=== PATIENT | female | born 1985 | race Caucasian/White ===

== ENCOUNTER 2017-06-12 13:57 | Emergency (ER) | payer SELFPAY ==
[2017-06-12 14:12] VITALS: BP 128/91; PULSE 97; TEMP 98.5; BMI 30.9
--- NOTE | 2017-06-12 14:21 | PDOC ---
History of Present Illness - General History Source: Patient Exam Limitations: No Limitations - History of Present Illness Initial Comments: 06/12/17 14:48 The patient is a 31 year old female, with no significant past medical history of , who presents to the emergency department with, 2 weeks of a cough and sore throat beginning last night. She reports the ear pain to feel as a painful pressure. She reports having ear infections occasionally growing up. She reports sick contact. She reports to have had strep throat in the past. She reports a nonproductive cough, stuffy, and runny nose. She reports taking NyQuil and Advil PM for her symptoms, without relief. She is not up to date with her flu shot. She reports her menses to be regular and to not be . She denies to have ever been diagnosed with pneumonia. She denies recent fevers , chills, headache or dizziness. She denies recent nausea, vomit, diarrhea or constipation. She denies recent dysuria, frequency, urgency or hematuria. She denies recent chest pain or shortness of breath. Allergies: NKA Past surgical history: None reported. Social history: Smoker ( pack a day). <Mukesh Seay - Last Filed: 06/12/17 14:48> <Peter Guy - Last Filed: 06/12/17 15:11> - General Chief Complaint: Sore Throat Stated Complaint: EAR INFECTION SORE THROAT Time Seen by Provider: 06/12/17 14:18 Past History <Mukesh Seay - Last Filed: 06/12/17 14:48> - Past Medical History COPD: No Other medical history: DENIES - Immunization History Immunization Up to Date: Yes - Suicide/Smoking/Psychosocial Hx Smoking Status: Yes Smoking History: Current every day smoker Have you smoked in the past 12 months: Yes Number of Cigarettes Smoked Daily: 10 Cigars Per Day: 0 Information on smoking cessation initiated: Yes 'Breaking Loose' booklet given: 06/12/17 Hx Alcohol Use: Yes (SOCIAL) Drug/Substance Use Hx: No Substance Use Type: Alcohol <Peter Guy - Last Filed: 06/12/17 15:11> - Past Medical History Allergies/Adverse Reactions: Allergies Allergy/AdvReac Type Severity Reaction Status Date / Time No Known Allergies Allergy Verified 06/12/17 13:59 Home Medications: Ambulatory Orders Ibuprofen 800 mg PO TID #20 tablet 06/12/17 Promethazine/Phenyleph/Codeine [Phenergan VC+Codeine Syrup] 5 - 10 ml PO HS PRN #90 ml MDD 2 06/12/17 Review of Systems - Review of Systems Able to Perform ROS?: Yes Comments:: 06/12/17 14:50 CONSTITUTIONAL: Absent: fever, no chills, no fatigue EYES: Absent: visual changes ENT:+ Ear Pain. +Sore throat. +Stuffy nose. +Runny nose. CARDIOVASCULAR: Absent: chest pain, no palpitations RESPIRATORY:+Cough (Nonproductive) Absent: no SOB GI: Absent: abdominal pain, no nausea, no vomiting, no constipation, no diarrhea GENITOURINARY: Absent: dysuria, no frequency, no hematuria MUSKULOSKELETAL: Absent: back pain, no arthralgia, no myalgia SKIN: Absent: rash NEURO: Absent: headache All Other Systems: Reviewed and Negative <Mukesh Seay - Last Filed: 06/12/17 14:48> *Physical Exam - Vital Signs Last Vital Signs Temp Pulse Resp BP Pulse Ox 98.5 F 97 H 20 128/91 100 06/12/17 13:58 06/12/17 13:58 06/12/17 13:58 06/12/17 13:58 06/12/17 13:58 - Physical Exam Comments: 06/12/17 14:50 GENERAL: Well developed, well nourished. Awake and alert. No acute distress. HEENT: +Left ear slightly erythematous. +Back of throat erythematous, diffusely edematous with no discharge or focal swelling. Normocephalic, atraumatic. PERRLA , EOMI. No conjunctival pallor. Sclera are non-icteric. Moist mucous membranes. NECK: +Submandibular lymphadenopathy. Supple. Full ROM. No JVD. Carotid pulses 2+ and symmetric, without bruits. No thyromegaly. CARDIOVASCULAR: Regular rate and rhythm. No murmurs, rubs, or gallops. Distal pulses are 2+ and symmetric. PULMONARY: No evidence of respiratory distress. Lungs clear to auscultation bilaterally. No wheezing, rales or rhonchi. ABDOMINAL: Soft. Non-tender. Non-distended. No rebound or guarding. No organomegaly. Normoactive bowel sounds. MUSCULOSKELETAL Normal range of motion at all joints. No bony deformities or tenderness. No CVA tenderness. EXTREMITIES: No cyanosis. No clubbing. No edema. No calf tenderness. SKIN: Warm and dry. Normal capillary refill. No rashes. No jaundice. NEUROLOGICAL: Alert, awake, appropriate. Cranial nerves 2-12 intact. No deficits to light touch and temperature in face, upper extremities and lower extremities. No motor deficits in the in face, upper extremities and lower extremities. Normoreflexic in the upper and lower extremities. Normal speech. Toes are down- going bilaterally. Gait is normal without ataxia. PSYCHIATRIC: Cooperative. Good eye contact. Appropriate mood and affect. <Mukesh Seay - Last Filed: 06/12/17 14:48> - Vital Signs Last Vital Signs Temp Pulse Resp BP Pulse Ox 98.5 F 97 H 20 128/91 100 06/12/17 13:58 06/12/17 13:58 06/12/17 13:58 06/12/17 13:58 06/12/17 13:58 <Peter Guy - Last Filed: 06/12/17 15:11> ED Treatment Course - Medications Given in the ED: ED Medications Discontinued Medications Generic Name Dose Route Start Last Admin Trade Name Freq PRN Reason Stop Dose Admin Guaifenesin/Codeine Phosphate 10 ml 06/12/17 14:24 06/12/17 14:29 Robitussin Ac - PO 06/12/17 14:25 10 ml ONCE ONE Administration Ibuprofen 800 mg 06/12/17 14:23 06/12/17 14:28 Motrin - PO 06/12/17 14:24 800 mg ONCE ONE Administration <Mukesh Seay - Last Filed: 06/12/17 14:48> Medical Decision Making - Medical Decision Making 06/12/17 15:10 Patient is afebrile and well-hydrated. There is no difficulty breathing, swallowing, or stridor. There is no sign of an abscess in the throat, but there is considerable erythema and edema. Rapid strep is positive Patient elects single injection of benzathine penicillin instead of oral medication. Instructions. Discharged fully ambulatory and in no significant pain or other distress with her mother to follow-up as recommended. <Peter Guy - Last Filed: 06/12/17 15:11> *DC/Admit/Observation/Transfer - Attestations Scribe Attestion: 06/12/17 14:51 Documentation prepared by Mukesh Seay, acting as medical office administrator for Peter Rushing MD. <Mukesh Seay - Last Filed: 06/12/17 14:48> - Discharge Dispostion Admit: No <Peter Guy - Last Filed: 06/12/17 15:11> Diagnosis at time of Disposition: Strep throat - Discharge Dispostion Disposition: HOME Condition at time of disposition: Improved - Prescriptions Prescriptions: Ibuprofen 800 mg PO TID #20 tablet Promethazine/Phenyleph/Codeine [Phenergan VC+Codeine Syrup] 5 - 10 ml PO HS PRN #90 ml MDD 2 PRN Reason: cough and or congestion - Patient Instructions Printed Discharge Instructions: DI for Strep Throat Additional Instructions: Return to ER if there is fever or difficulty breathing or swallowing. Otherwise see primary physician for follow-up 2-3 days - Post Discharge Activity Forms/Work/School Notes: Back to Work
[2017-06-12] MEDS ORDERED: IBUPROFEN 600 MG TABLET (FP) PO ONE (14:23)
[2017-06-12] MEDS ORDERED: guaiFENesin/CODEINE 10 ML UNIT-DOSE CUPS PO ONE (14:24)
[2017-06-12] MEDS ORDERED: IBUPROFEN 400 MG TABLET (FP) PO ONE (14:26)
[2017-06-12] MEDS ORDERED: guaiFENesin/CODEINE 10 ML UNIT-DOSE CUPS ONE (14:27)
[2017-06-12] MEDS ORDERED: PENICILLIN G BENZATHINE 1,200,000 UNIT/2 ML PFS IM ONE ×2 (15:07→15:16)
== END 2017-06-12 15:34 | disposition home or self-care (01) ==
LOC: FER 13:57
DX: J02.0 Streptococcal pharyngitis (principal)
CPT/HCPCS: 87070; 87077; 87430; 99282-25

== ENCOUNTER 2017-11-02 21:35 | Emergency (ER) | payer OTHER ==
--- NOTE | 2017-11-02 21:42 | PDOC ---
History of Present Illness - General Chief Complaint: Alcohol intoxication Stated Complaint: OPIOD ADDICTION Time Seen by Provider: 11/02/17 21:42 History Source: Patient Exam Limitations: No Limitations - History of Present Illness Initial Comments: Heart care transferred 11/02/17 22:06 This is a 32-year-old female brought in by her father for evaluation of opioid withdrawal. As per patient's father she needs opioid detox and treatment for withdrawal. Patient said the last time she used any opioids was 10 mg of Percocet at 5:00 in the morning. Patient said she uses Roxicodone for recreational use. Patient is also 14 weeks but says she wants to terminate the at some point. When asked patient if she wanted detox for opioids patient said, "whenever I just want to feel better" patient denies any vomiting or diarrhea. Patient denies any rhinorrhea. Patient is experiencing some anxiety and mild agitation here in the emergency room. Patient is also noted to have positive alcohol on her breath and said she did drink 4 glasses of wine earlier in the day. He is a PAST MEDICAL HISTORY: no significant history PAST SURGICAL HISTORY: no significant history FAMILY HISTORY: no pertinant history SOCIAL HISTORY: Pt lives with family and is employed. MEDICATIONS: reviewed ALLERGIES: As per nursing notes Review of Systems General: No fevers or chills, no weakness, no weight loss HEENT: No change in vision. No sore throat,. No ear pain CardioVascular: No chest pain or shortness of breath Respiratory:No cough, or wheezing. Gastrointestinal: no nausea, vomitting, diarrhea or constipation, No rectal bleeding Genitourinary: No dysuria, hematuria, or frequency Musculoskeletal: No joint or muscle pain or swelling Neurologic: No headache, vertigo, dizziness or loss of consciousness Psychiatric: nor depression Skin: No rashes or easy bruising Endocrine: no increased thirst or abnormal weight change Allergic: no skin or latex allergy All other systems reviewed and normal Exam: General: Well-nourished well-developed individual, in mild distress intermittently tearful and anxious HEENT: patient is not noted to be yawning frequently. Neck: Supple, no meningeal signs, no lymphadenopathy Eyes::Pupils equal reactive and round, extraocular motion intact, there is no dilation of the pupils, there is no increase lacrimation or tearing Chest: Nontender to palpation Cardiac: S1-S2 normal, regular rate and rhythm, no murmurs rubs or gallops Respiratory: Lungs clear to auscultation bilateral Abdomen: Soft, nondistended, normal bowel sounds, nontender to palpation diffusely, bowel sounds are normal there is no increase in bowel sounds Extremities: Warm, dry, no cyanosis, clubbing, or edema Skin: No rashes Neuro: Alert and oriented x3, CN II - XII intact, nonfocal exam with normal strength, normal sensation, normal reflexes, normal gait, Psych: Anxious and somewhat agitated. Assessment and plan: This is a 32-year-old female who is brought in by her father requesting detox from opioids and concerned patient may be in withdrawal. Here in the emergency room patient's vitals were blood pressure 107 systolic and a heart rate of 97. Patient was somewhat anxious and mildly agitated otherwise there is no evidence of acute opioid withdrawal at this time. Patient had no vomiting, diarrhea, rhinorrhea, increased lacrimation, increased bowel sounds, abdominal cramping or pain, palpitations, frequent yawning or muscle aches. Patient did state she had some sweating earlier but was noted to have dry skin here in the emergency room. Patient does not require acute opioid withdrawal medication at this time however I did recommend that she seek treatment at an opioid detox center. [facility] was contacted we talked to the plastic sheets supervisor who said they do not do detox on a patient. However they didn't give us the phone number of the counselor Demar who will be in in the morning. That phone number was given to the father and we told me should call the counselor at [facility] who will be able to help them find a opioid detox center that well be able to treat her addiction and also address the issues. Patient was discharged home with her father who will be with her tonight. Past History - Past Medical History Allergies/Adverse Reactions: Allergies Allergy/AdvReac Type Severity Reaction Status Date / Time No Known Allergies Allergy Verified 06/12/17 13:59 Home Medications: Ambulatory Orders Oxycodone HCl [Roxicodone] 30 mg PO PRN 11/02/17 COPD: No - Immunization History Immunization Up to Date: Yes - Suicide/Smoking/Psychosocial Hx Smoking Status: Yes Smoking History: Current every day smoker Have you smoked in the past 12 months: Yes Number of Cigarettes Smoked Daily: 10 Cigars Per Day: 0 'Breaking Loose' booklet given: 06/12/17 Hx Alcohol Use: Yes (SOCIAL) Drug/Substance Use Hx: No Substance Use Type: Alcohol *DC/Admit/Observation/Transfer Diagnosis at time of Disposition: Opioid abuse - Discharge Dispostion Disposition: HOME Condition at time of disposition: Stable Admit: No - Referrals - Patient Instructions Additional Instructions: Call the numbers that you were given in the morning to speak with a counselor and try to get a program for her that we'll both detox her and address the issues. If tonight she experiences the symptoms of withdrawal that we discussed you may need to give her a Percocet to get her through the night until you can get her into a program. Return to the emergency department immediately with ANY new, persistent or worsening symptoms. Continue any medications as previously prescribed by your physician. You should follow up with your primary doctor as soon as possible regarding today's emergency department visit. . Please make sure your doctor reviews the results of your emergency evaluation. Thank you for coming to the Emergency Department today for your care. It was a pleasure to see you today. Please note that your evaluation is INCOMPLETE until you follow-up with your doctor. - Post Discharge Activity
[2017-11-02 22:00] VITALS: BP 107/70; PULSE 97; TEMP 98.2
== END 2017-11-02 22:26 | disposition home or self-care (01) ==
LOC: FER 21:35
DX: O99.322 Drug use complicating pregnancy, second trimester (principal); F11.10 Opioid abuse, uncomplicated; Z3A.14 14 weeks gestation of pregnancy; F17.210 Nicotine dependence, cigarettes, uncomplicated
CPT/HCPCS: 99282-25

== ENCOUNTER 2017-11-11 22:41 | Emergency (ER) | payer OTHER ==
[2017-11-11 22:45] VITALS: BP 129/77; PULSE 110; TEMP 98.2
[2017-11-11 23:22] LABS: URINE APPEARANCE SLCLOUDY; URINE BILIRUBIN NEGATIVE (<2.0 mg/dL); URINE COLOR DKYELLOW; URINE GLUCOSE (UA) NEGATIVE (NEGATIVE); URINE KETONE TRACE (NEGATIVE); URINE LEUK ESTERASE NEGATIVE (NEGATIVE); URINE NITRITE NEGATIVE (NEGATIVE); URINE PROTEIN NEGATIVE (NEGATIVE)
--- NOTE | 2017-11-11 23:44 | PDOC ---
History of Present Illness <AlfonzoJoya Nicole - Last Filed: 11/12/17 01:15> - General History Source: Patient Exam Limitations: No Limitations - History of Present Illness Initial Comments: 11/12/17 01:19 The patient is a 32 year old female, A2 with no significant past medical history Presents to the emergency department with abd pain. The patient reports lower abd cramps. Denies any vaginal bleeding. Denies vomiting, nausea, fever, chills or cough. Denies dysuria, hematuria or frequency or urgency to urinate. The patient reports her LMP was mid July. Allergies: NKDA Surgical history: None reported <Ara Wong - Last Filed: 11/12/17 01:23> - General Chief Complaint: Pain Stated Complaint: PAIN (14 WKS ) Time Seen by Provider: 11/11/17 23:03 Past History - Past Medical History CVA: No COPD: No Psychiatric Problems: Yes - Reproductive History Is Patient Now?: Yes - Immunization History Immunization Up to Date: Yes - Suicide/Smoking/Psychosocial Hx Smoking Status: Yes Smoking History: Current some day smoker Have you smoked in the past 12 months: Yes Number of Cigarettes Smoked Daily: 7 Cigars Per Day: 0 Information on smoking cessation initiated: No 'Breaking Loose' booklet given: 06/12/17 Hx Alcohol Use: No Drug/Substance Use Hx: No (opiates) Substance Use Type: Alcohol, Opiates <Nestor Mejíamargarito Ganh - Last Filed: 11/12/17 01:15> <Ara Wong - Last Filed: 11/12/17 01:23> - Past Medical History Allergies/Adverse Reactions: Allergies Allergy/AdvReac Type Severity Reaction Status Date / Time No Known Allergies Allergy Verified 11/11/17 22:43 Home Medications: Ambulatory Orders 105/Iron/Folic AC/Dha [Prena1 True Combo Pack] 1 each PO DAILY Review of Systems - Review of Systems Able to Perform ROS?: Yes Comments:: 11/12/17 01:21 CONSTITUTIONAL: Absent: fever, no chills, no fatigue EYES: Absent: visual changes ENT: Absent: ear pain, no sore throat CARDIOVASCULAR: Absent: chest pain, no palpitations RESPIRATORY: Absent: cough, no SOB GI: mild abd pain. Absent: no nausea, no vomiting, no constipation, no diarrhea GENITOURINARY: no vaginal bleeding. Absent: dysuria, no frequency, no hematuria MUSKULOSKELETAL: Absent: back pain, no arthralgia, no myalgia SKIN: Absent: rash NEURO: Absent: headache <MarvinAra - Last Filed: 11/12/17 01:23> *Physical Exam - Vital Signs Last Vital Signs Temp Pulse Resp BP Pulse Ox 98.2 F 110 H 20 129/77 100 11/11/17 22:43 11/11/17 22:43 11/11/17 22:43 11/11/17 22:43 11/11/17 22:43 <Joya Mejía - Last Filed: 11/12/17 01:15> - Vital Signs Last Vital Signs Temp Pulse Resp BP Pulse Ox 98.2 F 110 H 20 129/77 100 11/11/17 22:43 11/11/17 22:43 11/11/17 22:43 11/11/17 22:43 11/11/17 22:43 - Physical Exam Comments: 11/12/17 01:17 GENERAL: 32 year old female, in no acute distress. Well-appearing, well-nourished. No apparent distress. HEENT: Normocephalic, atraumatic. PERRL, EOM intact. CARDIOVASCULAR: Normal S1, S2. Regular rate and rhythm. PULMONARY: Clear to auscultation bilaterally. ABDOMEN: (+) protuberant belly and lower abd cramp. Soft, non-distended, non-tender. EXTREMITIES: Stranner pitting edema. Normal ROM in all four extremities. No gross deformities. SKIN: Warm, dry. No rash NEUROLOGICAL: No focal neurological deficits. <Ara Wong - Last Filed: 11/12/17 01:23> ED Treatment Course - ADDITIONAL ORDERS Additional order review: Laboratory Results 11/11/17 23:00 Urine Color Dkyellow Urine Appearance Slcloudy Urine pH 5.0 Ur Specific [place] 1.031 Urine Protein Negative Urine Glucose (UA) Negative Urine Ketones Trace H Urine Blood Negative Urine Nitrite Negative Urine Bilirubin Negative Urine Urobilinogen 2.0 H Ur Leukocyte Esterase Negative - RADIOLOGY Radiology Studies Ordered: Category Date Time Status LIMITED US [US] Stat Ultrasound 11/11/17 23:41 Ordered TRANSVAGINAL US PREG [US] Stat Ultrasound 11/11/17 23:33 Ordered <Joya Mejía - Last Filed: 11/12/17 01:15> - ADDITIONAL ORDERS Additional order review: Laboratory Results 11/11/17 23:00 Urine Color Dkyellow Urine Appearance Slcloudy Urine pH 5.0 Ur Specific [place] 1.031 Urine Protein Negative Urine Glucose (UA) Negative Urine Ketones Trace H Urine Blood Negative Urine Nitrite Negative Urine Bilirubin Negative Urine Urobilinogen 2.0 H Ur Leukocyte Esterase Negative <Ara Wong - Last Filed: 11/12/17 01:23> Medical Decision Making - Medical Decision Making 11/12/17 01:07 Finding: Ultrasound : uterus is anteverted and measures 12.8 cm in length. There is a single live IUP with estimated gestational age of 11 weeks and 5 days. There is a normal heart rate of 150 BPM. There is no subchorionic bleed. The right ovary measure 4.3 cm in length and appears normal. The left ovary measure 2.8 cm in length and appears normal. There is no significant free fluid. Pelvic duplex: there is normal arterial and venous flow in both ovaries. impression: Live IUP with estimated ago of 11 weeks and 5 days without definite abnormalities. The ultrasound was documented and signed by Ashutosh Alvarado MD at 11/12/2017 00:59 EST. <Ara Wong - Last Filed: 11/12/17 01:23> *DC/Admit/Observation/Transfer <Joya Mejía - Last Filed: 11/12/17 01:15> - Attestations Scribe Attestion: 11/12/17 01:23 Documentation prepared by Ara Wong, acting as electromedical service engineer for Joya Mejía MD. <Ara Wong - Last Filed: 11/12/17 01:23> Diagnosis at time of Disposition: - Referrals Referrals: Tino Ojeda MD [Primary Care Provider] - - Patient Instructions Printed Discharge Instructions: DI for -- Discomforts and Remedies Additional Instructions: please followup with supply tech - Post Discharge Activity
== END 2017-11-12 01:20 | disposition home or self-care (01) ==
LOC: JER 22:41
DX: O26.891 Other specified pregnancy related conditions, first trimester (principal); R10.30 Lower abdominal pain, unspecified; Z3A.11 11 weeks gestation of pregnancy
CPT/HCPCS: 76801-TC; 81003; 99281-25

== ENCOUNTER 2018-05-28 08:00 | Inpatient (IN) | payer OTHER ==
[2018-05-28 08:58] VITALS: BMI 35.0
[2018-05-28] MEDS ORDERED: BUTORPHANOL TARTRATE 1 MG/ML VIAL ONE ×2 (09:11)
[2018-05-28] MEDS ORDERED: PROMETHAZINE HCL 25 MG/1 ML VIAL ONE (09:11)
[2018-05-28] MEDS ORDERED: PROMETHAZINE HCL 25 MG/1 ML VIAL IVPUSH ONE (09:36)
[2018-05-28] MEDS ORDERED: BUTORPHANOL TARTRATE 1 MG/ML VIAL IVPB ONE (09:36)
--- NOTE | 2018-05-28 09:42 | HP ---
Past Medical History - Admission Chief Complaint: Pain in labor History of Present Illness: 32 yo @ 39 weeks gestation presents to L&D c/o labor pain. Few minutes later jess was ruptured. She was then admitted. Upon admission she was 2 cm dilated History Source: Patient Limitations to Obtaining History: No Limitations - Past Medical History ...: 4 ...Para: 1 ...Term: 1 ...: 0 ...Spon : 0 ...Induced : 2 ...Multiple Gestation: 0 ...EDC by Son[facility]: 05/29/18 - Past Surgical History Past Surgical History: Yes: None Hx Myomectomy: No Hx Transabdominal Cerclage: No - Smoking History Smoking history: Current every day smoker Have you smoked in the past 12 months: Yes Aproximately how many cigarettes per day: 7 - Alcohol/Substance Use Hx Alcohol Use: No Home Medications - Allergies Allergies/Adverse Reactions: Allergies Allergy/AdvReac Type Severity Reaction Status Date / Time No Known Allergies Allergy Verified 05/28/18 08:44 - Home Medications Home Medications: Ambulatory Orders 105/Iron/Folic AC/Dha [Prena1 True Combo Pack] 1 each PO DAILY Family Disease History - Family Disease History Family History: Unremarkable Review of Systems - Review of Systems Constitutional: reports: No Symptoms Eyes: reports: No Symptoms HENT: reports: No Symptoms Neck: reports: No Symptoms Cardiovascular: reports: No Symptoms Respiratory: reports: No Symptoms Gastrointestinal: reports: No Symptoms Genitourinary: reports: Pain Breasts: reports: No Symptoms Reported Musculoskeletal: reports: No Symptoms Integumentary: reports: No Symptoms Neurological: reports: No Symptoms Psychiatric: reports: No Symptoms Pain Intensity: 8 Physical Exam - Maternity Vital Signs: Vital Signs Temperature 97.7 F 05/28/18 08:15 Pulse Rate 93 H 05/28/18 09:00 Respiratory Rate 20 05/28/18 09:00 Blood Pressure 130/77 05/28/18 09:00 O2 Sat by Pulse Oximetry (%) Constitutional: Yes: Well Nourished Eyes: Yes: Conjunctiva Clear HENT: Yes: Atraumatic Neck: Yes: Supple Cardiovascular: Yes: Regular Rate and Rhythm Lungs: Clear to auscultation - Abdominal Exam/OB Number of Fetuses: Single Presentation: Vertex Contractions: Yes Regularity: Regular Intensity: Mod/Strong - Vaginal Exam/OB Dilatation (cm): 2 - Physical Exam ...Motor Strength: WNL Psychiatric: Yes: Alert, Oriented Problem List - Problems (1) Pain during labor Code(s): O99.89 - OTH DISEASES AND CONDITIONS COMPL PREG/CHLDBRTH; R52 - PAIN, UNSPECIFIED (2) 39 weeks gestation of Code(s): Z3A.39 - 39 WEEKS GESTATION OF Assessment/Plan Labor pain Admit to L&D Analgesia as needed Anticipate
[2018-05-28] MEDS ORDERED: DEXTROSE 5%-LACTATED RINGERS 1,000 ML IV SCH (09:45)
[2018-05-28 09:50] LABS: BASO % 0.2 % (0-2.0); EOS % 0.4 % (0-4.5); HEMATOCRIT 36.4 % (32.4-45.2); LYMPH % 17.3 % (8-40); MCH 32.1 pg (25.7-33.7); MCHC 32.9 g/dl (32.0-36.0); MEAN CELL VOLUME 97.7 fl (80-96); MEAN PLT VOLUME 7.1 fl (7.5-11.1); MONO % 5.9 % (3.8-10.2); NEUT % 76.2 % (42.8-82.8); PLATELET COUNT 421 K/MM3 (134-434); RBC 3.73 M/mm3 (3.60-5.2); RDW 13.4 % (11.6-15.6); WHITE BLOOD COUNT 13.8 K/mm3 (4.0-10.0)
[2018-05-28] MEDS ORDERED: FENTANYL/BUPIVACAINE/NS/PF - PCEA - 50 ML DISP.SYRIN EP ONE ×3 (10:01→17:56)
[2018-05-28] MEDS ORDERED: NALOXONE HCL 0.4 MG/ML VIAL IVPUSH PRN (10:02)
[2018-05-28] MEDS: ELECTROLYTE-148 SOLN 1,000 ML IV SCH ×2 (10:05→14:37)
[2018-05-28] MEDS ORDERED: FENTANYL/BUPIVACAINE/NS/PF - PCEA - 50 ML DISP.SYRIN EP SCH (10:15)
[2018-05-28] MEDS ORDERED: LIDO 2%/EPI 1:200000 PRESRVFRE (20 ML SDVIAL) ONE (10:16)
[2018-05-28 10:29] LABS: INR 0.92 (0.83-1.09); PROTHROMBIN TIME (PATIENT) 10.8 SEC (9.7-13.0)
[2018-05-28 10:32] LABS: ACTIVATED PTT 25.2 SECONDS (25.2-36.5)
[2018-05-28 10:41] LABS: ANION GAP 13 MMOL/L (8-16); BLOOD UREA NITROGEN 15 mg/dL (7-18); CALCIUM 8.7 mg/dL (8.5-10.1); CHLORIDE 102 mmol/L (98-107); CO2 19 mmol/L (21-32); CREATININE 0.5 mg/dL (0.55-1.3); GLUCOSE,RANDOM 117 mg/dL (74-106); SODIUM 134 mmol/L (136-145)
[2018-05-28] MEDS ORDERED: BUPIVACAINE HCL/PF 0.25% (2.5MG/ML) 10 ML VIAL ONE ×2 (11:31→15:11)
[2018-05-28 13:27] LABS: COCAINE, UR NEGATIVE ng/ml (CUTOFF=300); METHADONE, UR NEGATIVE ng/ml (CUTOFF=300); PHENCYCLIDINE,URINE NEGATIVE ng/ml (CUTOFF=25); URINE AMPHETAMINES NEGATIVE ng/ml (CUTOFF=500); URINE BARBITURATES NEGATIVE ng/ml (CUTOFF=200); URINE BENZODIAZEPINES NEGATIVE ng/ml (CUTOFF=200)
[2018-05-28 13:30] LABS: OPIATES, URI POSITIVE ng/ml (CUTOFF=300)
[2018-05-28] MEDS ORDERED: BUPIVACAINE HCL/PF 0.5% (5MG/ML) 10 ML VIAL ONE ×3 (15:43→19:09)
[2018-05-28] MEDS ORDERED: ELECTROLYTE-148 SOLN 500 ML IV SCH (18:15)
[2018-05-28] MEDS ORDERED: ELECTROLYTE-148 SOLN 1,000 ML IV SCH ×2 (18:45→19:15)
[2018-05-28] MEDS ORDERED: CITRIC ACID/SODIUM CITRATE 30 ML UNIT-DOSE CUP PO ONE ×2 (18:45→19:09)
--- NOTE | 2018-05-28 19:06 | PN ---
Progress Note, Labor Vaginal Exam #2 Labor Exam Date: 05/28/18 Labor Exam Time: 19:04 Heart Rate (range): Cat II Dilatation: 6 Effacement (%): 100 Amniotic Membrane Status: Ruptured Presentation: Vertex/Position Station: -2 Remarks: Now 2 prolonged decelerations down to the 90's with gradual recovery after 4 minutes. Resultant tachycardia and intermittent variable decelerations. Not a candidate for pitocin. Slow progression throughout the day, with profound cervical swelling and caput now. In light of this, I recommend Delivery. Consents signed. Risk of procedure- bleeding, infection and injury to bladder/bowel/tubes/ovaries. Charo Stafford MD
[2018-05-28] MEDS ORDERED: ceFAZolin 2 GRAM PREMIX BAG IVPB ONE (19:15)
[2018-05-28] MEDS ORDERED: ceFAZolin SODIUM 1 GM VIAL ONE (19:31)
[2018-05-28] MEDS ORDERED: MIDAZOLAM HCL 2 MG/2 ML SINGLE DOSE VIAL ONE (19:35)
[2018-05-28] MEDS ORDERED: OXYTOCIN 10 UNITS/ML VIAL ONE (19:36)
[2018-05-28] MEDS ORDERED: METHYLERGONOVINE MALEATE 0.2 MG/1 ML AMP IM PRN (20:06)
[2018-05-28] MEDS ORDERED: WITCH HAZEL 50% (TUCKS) 40 PAD/JAR PAD TP PRN (20:06)
--- NOTE | 2018-05-28 20:09 | OP ---
Operative Note - Note: Operative Date: 05/28/18 Pre-Operative Diagnosis: NRFHT Operation: Primary Low Transverse Surgeon: Geetha Stafford Remote Recruiter: tSephan Simms Anesthesia: Epidural Estimated Blood Loss (mls): 800 Drains, Volume Out (mls): 100 Operative Report Dictated: Yes
[2018-05-28] MEDS ORDERED: ACETAMINOPHEN INJECTION 100 ML IVPB ONE (20:11)
[2018-05-28 21:10] LABS: ARTERIAL BLD GAS O2 SATURATION 5.6 % (90-98.9); ARTERIAL BLOOD GAS BASE EXCESS -12.3 meq/l (-2-2); ARTERIAL BLOOD GAS PO2 10.4 mmHg (80-100)
[2018-05-28 21:27] LABS: ARTERIAL BLOOD GAS PCO2 92.2 mmHg (35-45); ARTERIAL BLOOD GAS pH 7.01 (7.35-7.45)
[2018-05-28] MEDS ORDERED: ACETAMINOPHEN 1000 MG/100 ML VIAL (NON FORMULARY) IVPB ONE (21:30)
--- NOTE | 2018-05-28 22:02 | OP ---
DATE OF OPERATION: 05/28/2018 PREOPERATIVE DIAGNOSIS: Nonreassuring heart tracing. POSTOPERATIVE DIAGNOSIS: Nonreassuring heart tracing, meconium fluid. PROCEDURE: Primary low transverse section. ANESTHESIA: Epidural. SURGEON: Geetha Stafford MD W[employer] CONDITIONING MECHANIC: SAAD Murphy ESTIMATED BLOOD LOSS: 800 mL INTRAVENOUS FLUIDS: Per anesthesia record. URINE OUTPUT: 100 mL of clear urine at the end of the procedure. FINDINGS: Viable male infant, PHILLIP position, no nuchal, thick meconium. Apgars of 6 and 9. Weight pending as the is in the NICU. Normal tubes and ovaries palpated bilaterally. CONDITION: Stable. NATURE OF PROCEDURE: After appropriate consents were signed, the patient was taken to the operating room. Epidural anesthesia was confirmed to be adequate. She was placed in the supine position with the left lateral tilt. Lopez catheter had previously been inserted. Abdomen was prepped and draped in the normal sterile fashion. Pfannenstiel incision was made with the scalpel and carried through to the underlying layers until the fascia was nicked in the midline. Fascia was then extended laterally with the Hillman scissors. The inferior aspect of the fascia was grasped, elevated, tented upwards, and the rectus muscle was dissected off bluntly with the Hillman scissors. Attention was then paid to the superior aspect, which was taken down in a similar fashion. Rectus muscles were bluntly in the midline. Peritoneum was entered bluntly. Bladder blade was inserted. Bladder flap was made with Metzenbaum scissors after being nicked in the midline and extended laterally. The bladder flap was then created digitally. The bladder blade was then reinserted. Using the scalpel, the uterus was incised in the lower quadrant. Meconium fluid was noted. The infant's head was delivered without difficulty, as were the remaining parts. The cord was clamped and cut. The was handed off to the awaiting staff. Cord segment and gasses were obtained. Placenta was delivered spontaneously. The uterus was cleared of clot and debris. There was significant pain with any pressure and therefore the adnexa was palpated bilaterally and noted to be normal. The hysterotomy was closed in 2 layers with a 0 Vicryl and noted to be hemostatic. The muscles were closed with 2-0 chromic. The fascia was closed with 1-0 Vicryl. The skin was reapproximated with monika. Dressings and bandages were applied. Lap, sponge, and needle count was correct x3. Patient was taken from the operating room in stable condition. She did receive 2 g of Ancef at the start of the procedure. MD ROBBI BEST/[id number]
[2018-05-28] MEDS: IBUPROFEN 800 MG/8 ML IJ IVPB PRN (23:56)
[2018-05-29 07:41] LABS: BASO % 0.1 % (0-2.0); EOS % 0.2 % (0-4.5); HEMATOCRIT 29.7 % (32.4-45.2); LYMPH % 9.7 % (8-40); MCH 32.7 pg (25.7-33.7); MCHC 33.6 g/dl (32.0-36.0); MEAN CELL VOLUME 97.4 fl (80-96); MEAN PLT VOLUME 7.2 fl (7.5-11.1); MONO % 5.2 % (3.8-10.2); NEUT % 84.8 % (42.8-82.8); PLATELET COUNT 301 K/MM3 (134-434); RBC 3.05 M/mm3 (3.60-5.2); RDW 13.4 % (11.6-15.6); WHITE BLOOD COUNT 20.4 K/mm3 (4.0-10.0)
--- NOTE | 2018-05-29 07:56 | PN ---
Post Progress Note Type of Delivery: Primary C/S Vital Signs: Vital Signs Temperature 97.7 F 05/29/18 06:00 Pulse Rate 87 05/29/18 06:00 Respiratory Rate 18 05/29/18 06:00 Blood Pressure 117/67 05/29/18 06:00 O2 Sat by Pulse Oximetry (%) 99 05/28/18 21:30 Uterus: Yes: Fundus below umbilicus Incision: Yes: Dressing dry and intact Abdomen/GI: Yes: Abdomen soft Lochia: Yes: Rubra Lochia, amount: Small Extremities: Yes: Calves non-tender - Labs Labs: CBC WBC 13.8 K/mm3 (4.0-10.0) H 05/28/18 09:15 RBC 3.73 M/mm3 (3.60-5.2) 05/28/18 09:15 Hgb 12.0 GM/dL (10.7-15.3) 05/28/18 09:15 Hct 36.4 % (32.4-45.2) 05/28/18 09:15 MCV 97.7 fl (80-96) H 05/28/18 09:15 MCH 32.1 pg (25.7-33.7) 05/28/18 09:15 MCHC 32.9 g/dl (32.0-36.0) 05/28/18 09:15 RDW 13.4 % (11.6-15.6) D 05/28/18 09:15 Plt Count 421 K/MM3 (134-434) 05/28/18 09:15 MPV 7.1 fl (7.5-11.1) L 05/28/18 09:15 Absolute Neuts (auto) 10.5 K/mm3 (1.5-8.0) H 05/28/18 09:15 Neutrophils % 76.2 % (42.8-82.8) D 05/28/18 09:15 Lymphocytes % 17.3 % (8-40) D 05/28/18 09:15 Monocytes % 5.9 % (3.8-10.2) 05/28/18 09:15 Eosinophils % 0.4 % (0-4.5) 05/28/18 09:15 Basophils % 0.2 % (0-2.0) 05/28/18 09:15 Nucleated RBC % 0 % (0-0) 05/28/18 09:15 Assessment/Plan 32yo s/p PLTCS, POD#1 Routine post op care OOB, ambulate AM labs pending Anticipate d/c to home by POD#4 Charo Stafford MD
[2018-05-29] MEDS: FERROUS SO4 325 MG TABLET (FP) PO SCH ×2 (08:22→18:20)
[2018-05-29] MEDS: IBUPROFEN 800 MG/8 ML IJ IVPB PRN (08:42)
[2018-05-29] MEDS: PRENATAL VITAMINS W/ FOLIC ACID TABLET (FP) PO SCH (09:18)
[2018-05-29] MEDS: SIMETHICONE 80 MG TAB.CHEW (FP) PO PRN ×3 (09:28→21:17)
--- NOTE | 2018-05-29 09:53 | PN ---
Progress Note (short form) - Note Progress Note: Anesthesia/Pain Pt seen and examined S:Alert and awake comfortable O: Vital Signs Temperature 97.8 F 05/29/18 09:22 Pulse Rate 95 H 05/29/18 09:22 Respiratory Rate 20 05/29/18 09:22 Blood Pressure 99/66 05/29/18 09:22 O2 Sat by Pulse Oximetry (%) 99 05/28/18 21:30 CBC, BMP 05/29/18 06:40 05/28/18 09:15 a/p: Current Active Problems 39 weeks gestation of (Acute) Pain during labor (Acute) s/p c section doing well post op Continue current care Jovani Logan MD
[2018-05-29] MEDS ORDERED: ACETAMINOPHEN 325 MG TABLET (FP) ONE (11:46)
[2018-05-29] MEDS ORDERED: ACETAMINOPHEN 325 MG TABLET (FP) PO ONE (11:50)
[2018-05-29] MEDS: IBUPROFEN 600 MG TABLET (FP) PO PRN ×2 (13:46→21:20)
[2018-05-29] MEDS: oxyCODONE HCL 5 MG TABLET PO PRN ×2 (13:46→21:17)
[2018-05-29] MEDS ORDERED: BISACODYL 10 MG SUPP.RECT RC PRN (20:06)
[2018-05-30] MEDS: oxyCODONE HCL 5 MG TABLET PO PRN ×3 (08:16→22:58)
[2018-05-30] MEDS: SIMETHICONE 80 MG TAB.CHEW (FP) PO PRN ×3 (08:16→22:58)
[2018-05-30] MEDS: FERROUS SO4 325 MG TABLET (FP) PO SCH ×2 (08:16→17:07)
[2018-05-30] MEDS: IBUPROFEN 600 MG TABLET (FP) PO PRN ×3 (08:17→23:02)
--- NOTE | 2018-05-30 10:17 | PN ---
Post Progress Note - Subjective Subjective: 32 yo Para 2 status post primary . Doing well Post Day: 2 Type of Delivery: Primary C/S Vital Signs: Vital Signs Temperature 97.8 F 05/30/18 08:51 Pulse Rate 101 H 05/30/18 08:51 Respiratory Rate 20 05/30/18 08:51 Blood Pressure 115/74 05/30/18 08:51 O2 Sat by Pulse Oximetry (%) 99 05/28/18 21:30 Breast Exam: Yes: Soft Uterus: Yes: Fundus Firm Incision: Yes: Dressing dry and intact Abdomen/GI: Yes: Abdomen soft, Tolerating PO Lochia: Yes: Rubra Lochia, amount: Small Extremities: Yes: Calves non-tender Activity: Ambulating - Labs Labs: CBC WBC 20.4 K/mm3 (4.0-10.0) H 05/29/18 06:40 RBC 3.05 M/mm3 (3.60-5.2) L 05/29/18 06:40 Hgb 10.0 GM/dL (10.7-15.3) L 05/29/18 06:40 Hct 29.7 % (32.4-45.2) L D 05/29/18 06:40 MCV 97.4 fl (80-96) H 05/29/18 06:40 MCH 32.7 pg (25.7-33.7) 05/29/18 06:40 MCHC 33.6 g/dl (32.0-36.0) 05/29/18 06:40 RDW 13.4 % (11.6-15.6) 05/29/18 06:40 Plt Count 301 K/MM3 (134-434) D 05/29/18 06:40 MPV 7.2 fl (7.5-11.1) L 05/29/18 06:40 Absolute Neuts (auto) 17.3 K/mm3 (1.5-8.0) H 05/29/18 06:40 Total Counted 100 05/29/18 06:40 Neutrophils % 84.8 % (42.8-82.8) H 05/29/18 06:40 Neutrophils % (Manual) 78.0 % (42.8-82.8) 05/29/18 06:40 Band Neutrophils % 13.0 % (0-10) H 05/29/18 06:40 Lymphocytes % 9.7 % (8-40) D 05/29/18 06:40 Lymphocytes % (Manual) 5.0 % (8-40) L 05/29/18 06:40 Monocytes % 5.2 % (3.8-10.2) 05/29/18 06:40 Monocytes % (Manual) 4 % (3.8-10.2) 05/29/18 06:40 Eosinophils % 0.2 % (0-4.5) 05/29/18 06:40 Basophils % 0.1 % (0-2.0) 05/29/18 06:40 Nucleated RBC % 0 % (0-0) 05/29/18 06:40 Problem List - Problems (1) Pain during labor Code(s): O99.89 - OTH DISEASES AND CONDITIONS COMPL PREG/CHLDBRTH; R52 - PAIN, UNSPECIFIED (2) 39 weeks gestation of Code(s): Z3A.39 - 39 WEEKS GESTATION OF Assessment/Plan Status post primary Stable Ambulation Analgesia as needed Continue post op care
[2018-05-30] MEDS: PRENATAL VITAMINS W/ FOLIC ACID TABLET (FP) PO SCH (10:54)
[2018-05-31] MEDS: SIMETHICONE 80 MG TAB.CHEW (FP) PO PRN ×4 (03:23→20:42)
[2018-05-31] MEDS: IBUPROFEN 600 MG TABLET (FP) PO PRN ×4 (03:24→20:44)
[2018-05-31] MEDS: oxyCODONE HCL 5 MG TABLET PO PRN ×2 (03:24→08:39)
[2018-05-31 07:30] LABS: BASO % 0.5 % (0-2.0); EOS % 0.9 % (0-4.5); HEMATOCRIT 25.4 % (32.4-45.2); HEMOGLOBIN 8.4 GM/dL (10.7-15.3); LYMPH % 28.7 % (8-40); MCH 32.4 pg (25.7-33.7); MCHC 33.2 g/dl (32.0-36.0); MEAN CELL VOLUME 97.6 fl (80-96); MEAN PLT VOLUME 6.9 fl (7.5-11.1); MONO % 5.2 % (3.8-10.2); NEUT % 64.7 % (42.8-82.8); PLATELET COUNT 381 K/MM3 (134-434); RDW 13.1 % (11.6-15.6); WHITE BLOOD COUNT 15.1 K/mm3 (4.0-10.0)
--- NOTE | 2018-05-31 07:45 | PN ---
Post Progress Note - Subjective Subjective: Patient seen and evaluated, doing well. Post Day: 3 Type of Delivery: Primary C/S Vital Signs: Vital Signs Temperature 98 F 05/30/18 22:00 Pulse Rate 102 H 05/30/18 22:00 Respiratory Rate 18 05/30/18 22:00 Blood Pressure 121/77 05/30/18 22:00 O2 Sat by Pulse Oximetry (%) 99 05/28/18 21:30 Breast Exam: Yes: Soft Uterus: Yes: Fundus Firm Incision: Yes: Other (Incision is healing) Abdomen/GI: Yes: Abdomen soft, Tolerating PO Lochia: Yes: Rubra Lochia, amount: Small Extremities: Yes: Calves non-tender Activity: Ambulating - Labs Labs: CBC WBC 20.4 K/mm3 (4.0-10.0) H 05/29/18 06:40 RBC 3.05 M/mm3 (3.60-5.2) L 05/29/18 06:40 Hgb 10.0 GM/dL (10.7-15.3) L 05/29/18 06:40 Hct 29.7 % (32.4-45.2) L D 05/29/18 06:40 MCV 97.4 fl (80-96) H 05/29/18 06:40 MCH 32.7 pg (25.7-33.7) 05/29/18 06:40 MCHC 33.6 g/dl (32.0-36.0) 05/29/18 06:40 RDW 13.4 % (11.6-15.6) 05/29/18 06:40 Plt Count 301 K/MM3 (134-434) D 05/29/18 06:40 MPV 7.2 fl (7.5-11.1) L 05/29/18 06:40 Absolute Neuts (auto) 17.3 K/mm3 (1.5-8.0) H 05/29/18 06:40 Total Counted 100 05/29/18 06:40 Neutrophils % 84.8 % (42.8-82.8) H 05/29/18 06:40 Neutrophils % (Manual) 78.0 % (42.8-82.8) 05/29/18 06:40 Band Neutrophils % 13.0 % (0-10) H 05/29/18 06:40 Lymphocytes % 9.7 % (8-40) D 05/29/18 06:40 Lymphocytes % (Manual) 5.0 % (8-40) L 05/29/18 06:40 Monocytes % 5.2 % (3.8-10.2) 05/29/18 06:40 Monocytes % (Manual) 4 % (3.8-10.2) 05/29/18 06:40 Eosinophils % 0.2 % (0-4.5) 05/29/18 06:40 Basophils % 0.1 % (0-2.0) 05/29/18 06:40 Nucleated RBC % 0 % (0-0) 05/29/18 06:40 Problem List - Problems (1) Pain during labor Code(s): O99.89 - OTH DISEASES AND CONDITIONS COMPL PREG/CHLDBRTH; R52 - PAIN, UNSPECIFIED (2) 39 weeks gestation of Code(s): Z3A.39 - 39 WEEKS GESTATION OF Assessment/Plan Status post Ambulation Analgesia as needed Consider D/C home in am
[2018-05-31] MEDS: FERROUS SO4 325 MG TABLET (FP) PO SCH ×2 (08:30→17:22)
[2018-05-31] MEDS: PRENATAL VITAMINS W/ FOLIC ACID TABLET (FP) PO SCH (10:07)
[2018-05-31] MEDS: ACETAMINOPHEN 325 MG TABLET (FP) PO PRN ×2 (15:52→20:43)
[2018-05-31] MEDS ORDERED: oxyCODONE HCL 5 MG TABLET PO PRN (23:06)
[2018-06-01 08:16] LABS: BASO % 0.8 % (0-2.0); EOS % 1.4 % (0-4.5); HEMATOCRIT 26.3 % (32.4-45.2); HEMOGLOBIN 8.7 GM/dL (10.7-15.3); LYMPH % 33.7 % (8-40); MCH 32.3 pg (25.7-33.7); MCHC 33.1 g/dl (32.0-36.0); MEAN CELL VOLUME 97.7 fl (80-96); MEAN PLT VOLUME 6.9 fl (7.5-11.1); MONO % 5.8 % (3.8-10.2); NEUT % 58.3 % (42.8-82.8); PLATELET COUNT 430 K/MM3 (134-434); RBC 2.69 M/mm3 (3.60-5.2); RDW 13.1 % (11.6-15.6); WHITE BLOOD COUNT 9.2 K/mm3 (4.0-10.0)
[2018-06-01] MEDS: FERROUS SO4 325 MG TABLET (FP) PO SCH (08:25)
[2018-06-01] MEDS: PRENATAL VITAMINS W/ FOLIC ACID TABLET (FP) PO SCH (09:27)
[2018-06-01 10:04] VITALS: BP 117/79; PULSE 76; TEMP 97.8
--- NOTE | 2018-06-01 14:20 | DS ---
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 Vital Signs: Vital Signs Temperature 97.8 F 06/01/18 09:55 Pulse Rate 76 06/01/18 09:55 Respiratory Rate 20 06/01/18 09:55 Blood Pressure 117/79 06/01/18 09:55 O2 Sat by Pulse Oximetry (%) 99 05/28/18 21:30 Constitutional: Yes: Well Nourished Eyes: Yes: Conjunctiva Clear HENT: Yes: Atraumatic Neck: Yes: Supple Cardiovascular: Yes: Regular Rate and Rhythm Respiratory: Yes: Regular Gastrointestinal: Yes: Normal Bowel Sounds ...Rectal Exam: Yes: WNL Renal/: Yes: WNL Pelvis: Yes: WNL External Genitalia: Yes: Normal Wound/Incision: Yes: [place] Intact, Other (Steri strips removed; mild oozing) Neurological: Yes: Alert, Oriented ...Motor Strength: WNL Psychiatric: Yes: Alert, Oriented Labs: CBC, BMP 06/01/18 07:00 05/28/18 09:15 Delivery - Delivery Type of Anesthesia: Epidural Episiotomy/Laceration: None EBL (cc): 800 Delivery, Single - Stages of Labor Date 1st Stage Initiatied: 05/27/18 Time 1st Stage Initiated: 23:00 Date of Delivery: 05/28/18 Time of Delivery: 19:33 Time Placenta Delivered: 19:34 - Condition of Milk Route Deliverer/Performing Artist Present: Yes Name: Gay Ocasio Gender: Male Weight: 7 lb 9 oz Position: Right, OA Total Hours ROM (Hrs/Mins): 11 hours 7 minutes - 1 Minute Total Score: 6 5 Minutes Total Score: 9 - [place] Feeding Plan Initial Plan: Elected not to breastfeed exclusively throughout hospitalization Discharge Summary Reason For Visit: LABOR ADMISSION Current Active Problems 39 weeks gestation of (Acute) Pain during labor (Acute) Procedures: Principal: Primary Hospital Course: Routine post op care Condition: Good - Instructions Diet, Activity, Other Instructions: No lifting, no driving x 4 weeks Wound care ( daily dressing change ) F/U in clinic in 1 week Medical compliance Disposition: HOME - Home Medications Comprehensive Discharge Medication List: Ambulatory Orders 105/Iron/Folic AC/Dha [Prena1 True Combo Pack] 1 each PO DAILY Dicloxacillin Sodium 500 mg PO BID #14 capsule 06/01/18 Ibuprofen [Motrin -] 600 mg PO Q4H PRN #60 tablet 06/01/18
--- NOTE | 2018-06-02 16:00 | PATH ---
Surgical Pathology Report Patient Name: YOON MARKS [facility]. Rec. #: [id number] /Age/Gender: 1985 (Age: 32) / F Account: [id number] Location: [facility] OBS/TRANSPORT NURSE Taken: 05/28/2018 Received: 05/30/2018 Reported: 06/02/2018 Physicians: Geetha Frederick M.D. Specimen(s) Received PLACENTA Clinical History Final Diagnosis PLACENTA: THIRD TRIMESTER PLACENTA WITH FOCAL STEM VESSEL VASCULITIS, AND INCREASED PIGMENTED MACROPHAGES IN MEMBRANES, CONSISTENT WITH MECONIUM STAINING. TRIVASCULAR CORD. Electronically Signed Cydney Cook M.D. Gross Description The specimen is received fresh labeled placenta and is a 455 gram, 19.0 x 17.5 x 2.0 cm. placenta with attached membranes and umbilical cord. The attached membranes are kaye green, meconium stained, translucent with focal opacities and insert marginally. The umbilical cord measures 31 cm. in length and averages 1 cm. in diameter. The cord inserts eccentrically, 7 cm. to the nearest margin. No true knots or strictures are identified. Cut surface of the umbilical cord reveals 3 vessels. The surface is cali green, meconium stained with minimal fibrin deposition and appropriate caliber vessels. The maternal surface is red-brown with focal defects. Sectioning reveals red-brown, spongy parenchyma. No lesions are identified. Body Piercer sections are submitted in three cassettes as follows: 1- membrane rolls and umbilical cord; 2-3- full thickness sections of placenta. 05/30/2018 [facility]05/30/2018
== END 2018-06-01 16:20 | disposition home or self-care (01) | DRG 540 ==
LOC: JDEL 08:00 → JLDR 08:25 → J3W 21:55
PROVIDERS: ADMIT Obstetrics & Gynecology; ATTEND Obstetrics & Gynecology
PROC: 10D00Z1 Extraction of Products of Conception, Low, Open Approach (ICD-10-PCS; principal; 2018-05-28)
DX: O76 Abnormality in fetal heart rate and rhythm complicating labor and delivery (principal); Z3A.39 39 weeks gestation of pregnancy; Z37.0 Single live birth
CPT/HCPCS: 36415; 36600; 80048; 80307; 82803; 85025; 85610; 85730; 86593; 86850; 86900; 86901; 88307-TC; J0131

== ENCOUNTER 2019-08-02 20:06 | Emergency (ER) | payer OTHER ==
[2019-08-02 20:25] VITALS: BP 118/69; PULSE 85; TEMP 97.7; BMI 30.9
--- NOTE | 2019-08-02 22:06 | PDOC ---
History of Present Illness - General Chief Complaint: Cold Symptoms Stated Complaint: COUGH Time Seen by Provider: 08/02/19 20:33 History Source: Patient Exam Limitations: No Limitations - History of Present Illness Initial Comments: 08/02/19 22:14 HISTORY OF PRESENT ILLNESS: 33-year-old woman who denies medical history of present presents to the emergency department for evaluation of moist nonproductive cough for 2 weeks. Patient states initially she had fevers and body aches which lasted 2 days. After the first 2 days the fevers and body aches have resolved and patient has had a continually nagging cough. Patient with mild nasal congestion which she states does not affect her breathing. Patient denies any discharge or drainage from her nose. Patient is now experiencing a frontal and bitemporal headache that worsens with coughing. Patient states she is 1/2 pack a day smoker. No recent travel or sick contacts. PAST MEDICAL HISTORY: Denies past medical history SURGICAL HISTORY: Denies ALLERGIES: No known drug allergies REVIEW OF SYSTEMS General/Constitutional: Denies fever or chills. Denies weakness, weight change. HEENT: See HPI Cardiovascular: Denies chest pain or shortness of breath. Respiratory: See HPI Gastrointestinal: Denies nausea, vomiting, diarrhea or constipation. Denies rectal bleeding. Genitourinary: Denies dysuria, frequency, or change in urination. Musculoskeletal: Denies joint or muscle swelling or pain. Denies neck or back pain. Skin and breasts: Denies rash or easy bruising. Neurologic: Denies headache, vertigo, loss of consciousness, or loss of sensation. Psychiatric: Denies depression or anxiety. Endocrine: Denies increased thirst. Denies abnormal weight change. Hematologic/Lymphatic: Denies anemia, easy bleeding, or history of blood clots. Allergic/Immunologic: Denies hives or skin allergy. Denies latex allergy. PHYSICAL EXAM General Appearance: Well-appearing, appropriately dressed. No apparent distress , no intoxication. HEENT: EOMI, PERRLA, normal ENT inspection, normal voice, TMs normal, pharynx normal. No conjunctival pallor. No photophobia, scleral icterus. No tenderness over frontal or maxillary sinuses. Neck: Supple. Trachea midline. No tenderness, rigidity, carotid bruit, stridor , lymphadenopathy, or thyromegaly. Respiratory/Chest: Lungs CTAB. No shortness of breath, chest tenderness, respiratory distress, accessory muscle use. No crackles, rales, rhonchi, stridor , wheezing, dullness Cardiovascular: RRR. S1, S2. No JVD, murmur, bradycardia, tachycardia. Vascular Pulses: Dorsalis-Pedis (R): 2+, Dorsalis-Pedis (L): 2+ Gastrointestinal/Abdominal: Normal bowel sounds. Abdomen soft, non-distended. No tenderness or rebound tenderness. No organomegaly, pulsatile mass, guarding, hernia, hepatomegaly, splenomegaly. Lymphatic: No adenopathy, tenderness. Musculoskeletal/Extremities: Normal inspection. FROM of all extremities, normal capillary refill. Pelvis Stable. No CVA tenderness. No tenderness to extremities, pedal edema, swelling, erythema or deformity. Integumentary: Appropriate color, dry, warm. 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 Fully oriented, alert. Appropriate mood/affect. Motor strength 5/5. No appreciable EOM palsy, facial droop or sensory deficit. Past History - Past Medical History Allergies/Adverse Reactions: Allergies Allergy/AdvReac Type Severity Reaction Status Date / Time No Known Allergies Allergy Verified 05/28/18 08:44 Home Medications: Ambulatory Orders 105/Iron/Folic AC/Dha [Prena1 True Combo Pack] 1 each PO DAILY Dicloxacillin Sodium 500 mg PO BID #14 capsule 06/01/18 Ibuprofen [Motrin -] 600 mg PO Q4H PRN #60 tablet 06/01/18 Azithromycin [Zithromax 250mg Tablets -] 250 mg PO UTDICT #6 tab 08/02/19 Ipratropium [place] 30 ml NS TID #1 bottle 08/02/19 Asthma: No Cancer: No Cardiac Disorders: No CVA: No COPD: No Diabetes: No HTN: No Psychiatric Problems: Yes Seizures: No Thyroid Disease: No - Immunization History Immunization Up to Date: Yes - Psycho Social/Smoking Cessation Hx Smoking Status: Yes Smoking History: Current every day smoker Have you smoked in the past 12 months: Yes Number of Cigarettes Smoked Daily: 8 Cigars Per Day: 0 Information on smoking cessation initiated: Yes 'Breaking Loose' booklet given: 06/12/17 Hx Alcohol Use: No Drug/Substance Use Hx: No Substance Use Type: Alcohol, Opiates Hx Substance Use Treatment: No *Physical Exam - Vital Signs Last Vital Signs Temp Pulse Resp BP Pulse Ox 97.7 F 85 20 118/69 98 08/02/19 20:19 08/02/19 20:19 08/02/19 20:19 08/02/19 20:19 08/02/19 20:19 Medical Decision Making - Medical Decision Making 08/02/19 22:13 A/P: 33-year-old woman with cough for 2 weeks Lungs clear to auscultation bilaterally Oropharynx is unremarkable As patient is a smoker this is likely an acute bronchitis related to smoking. Discharge home with prescription for azithromycin and Atrovent nasal spray as she has some minor nasal congestion. I discussed the physical exam findings, ancillary test results and final diagnoses with the patient. I answered all of the patient's questions. The patient was satisfied with the care received and felt comfortable with the discharge plan and treatment plan. The patient will call their primary care physician within 24 hours to arrange follow-up and will return to the Emergency Department with any new, persistent or worsening symptoms. Discharge - Discharge Information Problems reviewed: Yes Clinical Impression/Diagnosis: Bronchitis Headache Qualifiers: Headache type: primary cough headache Qualified Code(s): G44.83 - Primary cough headache Condition: Stable Disposition: HOME - Admission No - Additional Discharge Information Prescriptions: Azithromycin [Zithromax 250mg Tablets -] 250 mg PO UTDICT #6 tab Ipratropium [place] 30 ml NS TID #1 bottle - Follow up/Referral - Patient Discharge Instructions Patient Printed Discharge Instructions: DI for Acute Bronchitis Additional Instructions: Use ipratropium nasal spray 3 times a day as needed for nasal congestion. Take azithromycin as directed. Keep well-hydrated. Stop smoking. Your emergency department visit is incomplete until you follow-up with your primary doctor. Return to the emergency department for any new or worsening symptoms. Thank you very much for choosing us to provide your emergent healthcare needs. - Post Discharge Activity
== END 2019-08-02 22:06 | disposition home or self-care (01) ==
LOC: JERFT 20:06
DX: J20.9 Acute bronchitis, unspecified (principal); G44.83 Primary cough headache
CPT/HCPCS: 99282-25

== ENCOUNTER 2021-02-06 13:19 | Inpatient (IN) | payer OTHER ==
[2021-02-06 14:28] VITALS: BMI 32.9
[2021-02-06] MEDS ORDERED: MAGNESIUM CITRATE 300 ML BOTTLE PO PRN (15:41)
[2021-02-06] MEDS ORDERED: MAG HYDROX/AL HYDROX/SIMETH 30 ML UNIT-DOSE CUP PO PRN (15:41)
[2021-02-06] MEDS ORDERED: BISMUTH SUBSALICYLATE 524 MG/30 ML PO PRN (15:41)
[2021-02-06] MEDS ORDERED: MAGNESIUM HYDROX 2400MG/30ML ORAL SUSPENSION 30 ML CUP PO PRN (15:41)
[2021-02-06] MEDS ORDERED: NALOXONE (NARCAN) HCL 4 MG/0.1 ML SPRAY NS PRN (15:41)
[2021-02-06] MEDS ORDERED: ACETAMINOPHEN 325 MG TABLET (FP) PO PRN ×2 (15:41)
[2021-02-06] MEDS ORDERED: ONDANSETRON *ODT* 4 MG TABLET SL PRN (15:41)
[2021-02-06] MEDS ORDERED: IBUPROFEN 400 MG TABLET (FP) PO PRN (15:41)
[2021-02-06] MEDS ORDERED: MENTHOL/PHENOL 1 EACH UD MM PRN (15:41)
[2021-02-06] MEDS ORDERED: NICOTINE 10 MG CARTRIDGE (INHALER) IH PRN (15:41)
[2021-02-06] MEDS ORDERED: methaDONE HCL 10 MG TABLET (FOR DETOX USE ONLY) PO ONE (15:41)
[2021-02-06] MEDS: PRENATAL VITAMINS W/ FOLIC ACID TABLET (FP) PO SCH (16:49)
[2021-02-06] MEDS: NICOTINE 21 MG/24 HOURS TOPICAL PATCH TD SCH (16:53)
[2021-02-06] MEDS: hydrOXYzine PAMOATE 25 MG CAPSULE (FP) PO SCH ×2 (17:00→22:19)
[2021-02-06] MEDS: THIAMINE HCL 100 MG TABLET (FP) PO SCH (22:19)
[2021-02-06] MEDS: MELATONIN 5 MG TABLETS PO SCH (22:20)
[2021-02-07] MEDS: hydrOXYzine PAMOATE 25 MG CAPSULE (FP) PO SCH ×5 (06:04→22:25)
[2021-02-07] MEDS: METHOCARBAMOL 500 MG TABLET PO PRN (08:38)
[2021-02-07] MEDS: cloNIDine HCL 0.1 MG TABLET PO PRN ×3 (08:38→22:25)
[2021-02-07] MEDS ORDERED: methaDONE HCL 10 MG TABLET (FOR DETOX USE ONLY) ONE (09:11)
[2021-02-07] MEDS: PRENATAL VITAMINS W/ FOLIC ACID TABLET (FP) PO SCH (09:12)
[2021-02-07] MEDS: NICOTINE 21 MG/24 HOURS TOPICAL PATCH TD SCH (09:14)
[2021-02-07 10:22] LABS: HEMATOCRIT 38.1 % (32.4-45.2); HEMOGLOBIN 13.4 GM/dL (10.7-15.3); MCH 32.2 pg (25.7-33.7); MCHC 35.2 g/dl (32.0-36.0); MEAN CELL VOLUME 91.6 fl (80-96); MEAN PLT VOLUME 7.1 fl (7.5-11.1); PLATELET COUNT 415 10^3/uL (134-434); RBC 4.16 M/mm3 (3.60-5.2); RDW 11.9 % (11.6-15.6); WHITE BLOOD COUNT 7.2 K/mm3 (4.0-10.0)
[2021-02-07 10:29] LABS: ALBUMIN 3.9 g/dl (3.4-5.0); BLOOD UREA NITROGEN 12.1 mg/dL (7-18); CALCIUM 9.3 mg/dL (8.5-10.1)
[2021-02-07 10:32] LABS: CREATININE 0.8 mg/dL (0.55-1.3)
[2021-02-07 10:34] LABS: BILIRUBIN,TOTAL 0.8 mg/dL (0.2-1); TOT PROT 7.4 g/dl (6.4-8.2)
[2021-02-07] MEDS: diazePAM 5 MG TABLET PO PRN ×3 (13:45→22:24)
[2021-02-07] MEDS: MELATONIN 5 MG TABLETS PO SCH (22:25)
[2021-02-07] MEDS: THIAMINE HCL 100 MG TABLET (FP) PO SCH (22:25)
[2021-02-08] MEDS: diazePAM 5 MG TABLET PO PRN ×3 (03:14→12:17)
[2021-02-08] MEDS: hydrOXYzine PAMOATE 25 MG CAPSULE (FP) PO SCH ×3 (05:14→14:09)
[2021-02-08] MEDS: NICOTINE 21 MG/24 HOURS TOPICAL PATCH TD SCH (09:16)
[2021-02-08] MEDS: PRENATAL VITAMINS W/ FOLIC ACID TABLET (FP) PO SCH (09:17)
[2021-02-08] MEDS ORDERED: methaDONE HCL 10 MG TABLET (FOR DETOX USE ONLY) PO ONE (10:00)
[2021-02-08] MEDS: METHOCARBAMOL 500 MG TABLET PO PRN (12:16)
[2021-02-08 12:52] VITALS: BP 111/78; PULSE 97; TEMP 96.2
[2021-02-09] MEDS ORDERED: diazePAM 5 MG TABLET PO PRN (00:01)
[2021-02-10] MEDS ORDERED: methaDONE HCL 10 MG TABLET (FOR DETOX USE ONLY) PO ONE (10:00)
== END 2021-02-08 14:53 | disposition left against medical advice (07) | DRG 770 ==
LOC: YASAS 13:19 → UNDOADMIN 15:09 → Y6N 15:09
PROVIDERS: ADMIT Allergy & Immunology; ATTEND Allergy & Immunology
PROC: HZ2ZZZZ Detoxification Services for Substance Abuse Treatment (ICD-10-PCS; principal; 2021-02-06)
DX: F11.23 Opioid dependence with withdrawal (principal); F17.210 Nicotine dependence, cigarettes, uncomplicated; R01.1 Cardiac murmur, unspecified
CPT/HCPCS: 36415; 80053; 81025; 85027; 86780; C9803; J0735; U0003; U0005